=== PATIENT | male | born 1980 | race Caucasian/White ===

== ENCOUNTER 2020-06-05 09:40 | Emergency (ER) | payer BC, SELFPAY ==
[2020-06-05 09:42] VITALS: BP 155/94; PULSE 71; RESP 18; TEMP 36.3; O2SAT 100; BMI 25.1
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
[2020-06-05 11:20] VITALS: BP 150/91; PULSE 84; RESP 18; O2SAT 97
[2020-06-05] MEDS: Diphth,Pertuss(Acell),Tet Vac 0.5 ML Vial IM (11:22)
[2020-06-05 11:48] VITALS: BP 132/101; PULSE 80; RESP 18; O2SAT 95
== END 2020-06-05 11:52 | disposition home or self-care (01) ==
LOC: ED 11:17
PROVIDERS: Emergency Provider Physician Assistant Medical
DX: S06.0X0A Concussion without loss of consciousness, initial encounter (principal); S00.83XA Contusion of other part of head, initial encounter; S50.02XA Contusion of left elbow, initial encounter; S16.1XXA Strain of muscle, fascia and tendon at neck level, initial encounter; V43.52XA Car driver injured in collision with other type car in traffic accident, initial encounter; Y93.9 Activity, unspecified; Y92.9 Unspecified place or not applicable; E03.9 Hypothyroidism, unspecified; Z79.899 Other long term (current) drug therapy; Z87.891 Personal history of nicotine dependence
CPT/HCPCS: 70450; 71045; 72125; 73030; 73080; 90715; 99285

== ENCOUNTER 2020-10-21 15:07 | Emergency (ER) | payer BC, SELFPAY ==
[2020-10-21 15:08] VITALS: BP 156/88; PULSE 83; RESP 22; TEMP 36.2; O2SAT 98; BMI 25.0
[2020-10-21 15:11] VITALS: BP 156/88; PULSE 83; RESP 22; TEMP 36.2; O2SAT 98
--- NOTE | 2020-10-21 15:16 | EKG12_ITS ---
Test Reason : CP Blood Pressure : / mmHG Vent. Rate : 077 BPM Atrial Rate : 077 BPM P-R Int : 144 ms QRS Dur : 078 ms QT Int : 364 ms P-R-T Axes : 048 031 044 degrees QTc Int : 411 ms Normal sinus rhythm Normal ECG Confirmed by BLAYNE BANEGAS, DAVONTE ([id number]), editor book BELLO DELACRUZ ([id number]) on 10/24/2020 10:12:14 AM Referred By: KALIE Confirmed By:DAVONTE CISNEROS MD
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
[2020-10-21 15:32] LABS: Absolute Lymphocyte Count 1.88 X10^3/uL (0.83-4.51); Absolute Neutrophil Count 5.2 X10^3/uL (2.0-7.7); Basophil# 0.05 X10^3/uL; Basophil% 0.6 % (0-1); Eosinophil# 0.15 X10^3/uL; Eosinophils% 1.9 % (0-5); Hematocrit 47.8 % (40-54); Hemoglobin 15.7 g/dL (13.0-16.5); Lymphocyte # 1.88 X10^3/ul (4.0); Lymphocyte % 23.9 % (19-41); Mean Corp Hgb Conc 32.8 g/dL (32-36); Mean Corpuscular Hgb 31.7 pg (27.0-32.0); Mean Corpuscular Volume 96.4 fL (80-94); Mean Platelet Vol. 11.2 fl (6.2-12.0); Monocyte# 0.53 X10^3/uL; Monocyte% 6.7 % (0-10); NRBC Flagged by Analyzer 0 % (0-5); Neutrophil # 5.24 X10^3/uL (2.7-7.7); Neutrophil % 66.6 % (47-70); Platelet Count 189 K/mm3 (150-450); RBC Distribution Width CV 12.1 % (11.6-14.6); Red Blood Count 4.96 M/mm3 (4.6-6.2); White Blood Count 7.9 K/mm3 (4.4-11.0)
[2020-10-21 16:20] VITALS: BP 135/84; PULSE 73; RESP 14; O2SAT 99
== END 2020-10-21 16:21 | disposition home or self-care (01) ==
PROVIDERS: Emergency Provider Emergency Medicine
DX: R07.89 Other chest pain (principal); R05 Cough; Z87.891 Personal history of nicotine dependence
CPT/HCPCS: 71046; 85025; 93005; 99284; A4216